=== PATIENT | male | born 1970 | race Caucasian/White ===

== ENCOUNTER 2017-09-10 22:56 | Emergency (ER) | payer OTHER ==
[2017-09-10 23:06] VITALS: BP 144/93; PULSE 72; TEMP 97.7; BMI 27.8
--- NOTE | 2017-09-11 01:24 | PDOC ---
History of Present Illness - General Chief Complaint: Laceration Stated Complaint: LACERATION Time Seen by Provider: 09/11/17 01:24 - History of Present Illness Initial Comments: 09/11/17 01:36 Mr. Slater is a 46 yo male with a significant past medical history of HTN who presents to the emergency department with a small cut to his right thumb he sustained making lunches for his kids earlier today. He has no other complaints. The patient denies chest pain, shortness of breath, headache and dizziness. Denies fever, chills, nausea, vomit, diarrhea and constipation. Denies dysuria, frequency, urgency and hematuria. Allergies: NKDA Past History - Past Medical History Allergies/Adverse Reactions: Allergies Allergy/AdvReac Type Severity Reaction Status Date / Time No Known Allergies Allergy Verified 09/10/17 23:03 Home Medications: Ambulatory Orders Ibuprofen [Motrin] 600 mg PO Q6H PRN #18 tablet 01/11/13 Other medical history: Pt denies - Suicide/Smoking/Psychosocial Hx Smoking Status: No Smoking History: Never smoked Have you smoked in the past 12 months: No Number of Cigarettes Smoked Daily: 0 Information on smoking cessation initiated: No Hx Alcohol Use: No Drug/Substance Use Hx: No Substance Use Type: None Review of Systems - Review of Systems Comments:: 09/11/17 01:38 GENERAL/CONSTITUTIONAL: No fever or chills. No weakness. HEAD, EYES, EARS, NOSE AND THROAT: No change in vision. No ear pain or discharge. No sore throat. CARDIOVASCULAR: No chest pain or shortness of breath RESPIRATORY: No cough, wheezing, or hemoptysis. GASTROINTESTINAL: No nausea, vomiting, diarrhea or constipation. GENITOURINARY: No dysuria, frequency, or change in urination. MUSCULOSKELETAL: +Small laceration to R thumb. No joint or muscle swelling or pain. No neck or back pain. SKIN: No rash NEUROLOGIC: No headache, vertigo, loss of consciousness, or change in strength/ sensation. ENDOCRINE: No increased thirst. No abnormal weight change HEMATOLOGIC/LYMPHATIC: No anemia, easy bleeding, or history of blood clots. ALLERGIC/IMMUNOLOGIC: No hives or skin allergy. *Physical Exam - Vital Signs Last Vital Signs Temp Pulse Resp BP Pulse Ox 97.7 F 72 18 144/93 97 09/10/17 23:03 09/10/17 23:03 09/10/17 23:03 09/10/17 23:03 09/10/17 23:03 - Physical Exam Comments: 09/11/17 01:39 GENERAL: Awake, alert, and fully oriented, in no acute distress HEAD: No signs of trauma, normocephalic, atraumatic EYES: PERRLA, EOMI, sclera anicteric, conjunctiva clear ENT: Auricles normal inspection, hearing grossly normal, nares patent, oropharynx clear without exudates. Moist mucosa NECK: Normal ROM, supple, no lymphadenopathy, JVD, or masses LUNGS: No distress, speaks full sentences, clear to auscultation bilaterally HEART: Regular rate and rhythm, normal S1 and S2, no murmurs, rubs or gallops, peripheral pulses normal and equal bilaterally. ABDOMEN: Soft, nontender, normoactive bowel sounds. No guarding, no rebound. No masses EXTREMITIES: +Ac distal tip of R 1st digit sliced completely off. Normal inspection, Normal range of motion, no edema. No clubbing or cyanosis. NEUROLOGICAL: Cranial nerves II through XII grossly intact. Normal speech, normal gait, no focal sensorimotor deficits SKIN: Warm, Dry, normal turgor, no rashes or lesions noted. Procedures - Laceration/Wound Repair Right Distal 1st digit Wound Length: to 2.5 cm Wound Explored: clean Wound's Depth, Shape: superficial Irrigated w/ Saline: No Betadine Prep: No Wound Repaired With: Dermabond Medical Decision Making - Medical Decision Making 09/11/17 01:40 Patient's thumb covered with dermabond with good closure. Tetanus updated. Discharging to home. *DC/Admit/Observation/Transfer Diagnosis at time of Disposition: Laceration - Discharge Dispostion Disposition: HOME - Patient Instructions Printed Discharge Instructions: DI for Laceration Repair With Dermabond
[2017-09-11] MEDS ORDERED: DIPHTH,PERTUSS(ACELL),TET 0.5 ML DISP.SYRIN IM ONE (01:40)
--- NOTE | 2017-09-11 01:47 | PDOC ---
Attending Attestation - Resident Resident Name: Tae Esquivel - ED Attending Attestation I have performed the following: I have examined & evaluated the patient, The case was reviewed & discussed with the resident, I agree w/resident's findings & plan, Exceptions are as noted - HPI HPI: 09/11/17 01:49 46 M with no PMH presents to ER with R thumb injury sustained while cutting cheese on a mandolin. Pt states that he nicked the tip of his thumb. He reports bleeding initially that stopped with direct pressure. Pt denies any other injuries. Does not know when last tetanus shot was. - Physicial Exam PE: 09/11/17 01:51 "GENERAL: Awake, alert, and fully oriented, in no acute distress HEAD: No signs of trauma EYES: PERRLA, EOMI, sclera anicteric, conjunctiva clear ENT: Auricles normal inspection, hearing grossly normal, nares patent, oropharynx clear without exudates. Moist mucosa NECK: Nontender, no stepoffs, Normal ROM, supple, no lymphadenopathy, JVD, or masses LUNGS: Breath sounds equal, clear to auscultation bilaterally. No wheezes, and no crackles HEART: Regular rate and rhythm, normal S1 and S2, no murmurs, rubs or gallops ABDOMEN: Soft, nontender, normoactive bowel sounds. No guarding, no rebound. No masses EXTREMITIES: R thumb with superficial <1cm avulsion to fingertip. no active bleeding. extensor and flexor tendons intact, neurovascularly intact. - Medical Decision Making 09/11/17 01:52 46 M with small superficial avulsion injury to tip of R thumb. No indication for repair at this time as wound is very shallow. - Tdap - Irrigation, wound dressing
== END 2017-09-11 02:22 | disposition home or self-care (01) ==
LOC: JER 22:56
PROC: 0HQFXZZ Repair Right Hand Skin, External Approach (ICD-10-PCS; principal; 2017-09-10)
PROC: 3E0234Z Introduction of Serum, Toxoid and Vaccine into Muscle, Percutaneous Approach (ICD-10-PCS; 2017-09-10)
DX: S61.011A Laceration without foreign body of right thumb without damage to nail, initial encounter (principal); W26.0XXA Contact with knife, initial encounter; Y93.G1 Activity, food preparation and clean up; Y92.010 Kitchen of single-family (private) house as the place of occurrence of the external cause; Y99.8 Other external cause status
CPT/HCPCS: 90715; 99283-25

== ENCOUNTER 2019-05-08 07:34 | Emergency (ER) | payer OTHER | END 2019-05-08 09:52 | disposition home or self-care (01) | LOC: JER 07:34 ==